=== PATIENT | female | born 1970 | race Caucasian/White ===

== ENCOUNTER 2024-10-07 10:16 | Emergency (ER) | payer OTHER ==
[~2024-10-07] VITALS: Ht 167.6 cm; Wt 115.0 kg
[2024-10-07 10:23] VITALS: O2SAT 97
[2024-10-07 12:23] LABS: BASOPHILS % 0.1 % (0.0-2.0); EOSINOPHILS % 0.1 % (0.0-5.0); HEMATOCRIT. 51.4 % (36.0-48.0); HEMOGLOBIN. 16.9 g/dL (12.0-16.0); LYMPHOCYTES % 11.4 % (20.0-50.0); MEAN CORPUSCULAR HEMOGLOBIN 28.2 pg (28.0-32.0); MEAN CORPUSCULAR HGB CONC 32.9 g/dL (31.0-37.0); MEAN CORPUSCULAR VOLUME 85.7 fL (81.0-99.0); MEAN PLATELET VOLUME 8.1 fl (7.4-10.4); MONOCYTES % 3.1 % (2.0-8.0); NEUTROPHILS % 85.3 % (40.0-76.0); PLATELET 337 x1000/uL (130-400); RED CELL DISTRIBUTION WIDTH 13.9 % (11.6-14.6); WHITE BLOOD COUNT 10.6 x1000/uL (4.5-11.0)
[2024-10-07 12:24] LABS: CHLORIDE 103 mEq/L (98-107); POTASSIUM 3.8 mEq/L (3.5-5.1); SODIUM 136 mEq/L (136-145)
[2024-10-07 12:25] LABS: CALCIUM 9.2 mg/dL (8.7-10.4); CARBON DIOXIDE 27 mEq/L (21-32)
[2024-10-07 12:30] LABS: CREATININE 0.7 mg/dL (0.6-1.0); GLUCOSE 150 mg/dL (70-105); UREA NITROGEN BLOOD 9 mg/dL (9-23)
[2024-10-07 12:32] LABS: TROPONIN I HIGH SENSITIVITY 13 ng/L (3.0-34)
[2024-10-07] MEDS ORDERED: METOPROLOL SUCCINATE 50MG ER TABLET PO STA (13:00)
[2024-10-07] MEDS: METOPROLOL SUCCINATE 25MG ER TABLET PO NR (14:14)
[2024-10-07 15:30] LABS: TROPONIN I HIGH SENSITIVITY 8 ng/L (3.0-34)
[2024-10-07 17:13] VITALS: BP 165/101; PULSE 111; RESP 16; TEMP 37.1; O2SAT 97
== END 2024-10-07 17:14 | disposition home or self-care (01) ==
LOC: ER 10:16
DX: R07.89 Other chest pain (principal); F41.9 Anxiety disorder, unspecified; I25.2 Old myocardial infarction; J45.909 Unspecified asthma, uncomplicated; I10 Essential (primary) hypertension
CPT/HCPCS: 36415; 71045; 80048; 80320; 84484; 85025; 85379; 93005; 99285; G0480